=== PATIENT | male | born 1970 | race Caucasian/White ===

== ENCOUNTER 2019-04-08 16:43 | Emergency (ER) | payer BC, MEDICAID ==
[~2019-04-08] VITALS: Wt 113.1 kg
[2019-04-08 19:12] VITALS: BP 161/96; PULSE 58; RESP 18
== END 2019-04-08 19:13 | disposition home or self-care (01) ==
LOC: FTE 16:43
DX: R51 Headache (principal)
CPT/HCPCS: 70450; 93005; Z7502